=== PATIENT | male | born 1980 | race Two or more races ===

== ENCOUNTER 2024-08-12 22:23 | Emergency (ER) | payer OTHER, SELFPAY ==
[2024-08-12 22:24] VITALS: BMI 23.0
[2024-08-12 22:33] VITALS: BP 144/75; PULSE 75; RESP 18; TEMP 36.4; O2SAT 97
--- NOTE | 2024-08-12 22:38 | XR_ITS ---
Examination: CT lumbar spine, without contrast. 2-D sagittal reconstructions. 2-D coronal reconstructions. 3-D reconstructions. Date and time of exam:August 13, 2024 0047 hrs. Indications: Patient fell today with injury to lower back, lower back pain CTDI: vol (mGy):16.9 DLP: (mGycm):492 Technique: Multiple 1.25 mm axial sections of the lumbar spine without intravenous contrast have been obtained. 2-D sagittal and coronal reconstructions have been obtained. 3-D reconstructions have been obtained. Low dose protocols were performed. One or more of the following dose reduction techniques were used; automated exposure control, adjustment of the mA and/or KV according to patient size, use of iterative reconstruction technique. Findings: Satisfactory alignment lumbar vertebral bodies on the lateral view No lumbar vertebral body compression fracture Advanced disc narrowing L5-S1 Lumbar pedicles, laminae, transverse and posterior spinous processes intact No focal lumbar disc protrusion Impression: No lumbar fracture
[2024-08-12] MEDS: NAPROXEN 250 MG TABLET 500 MG PO (23:04)
--- NOTE | 2024-08-13 02:43 | PRELIM_ITS ---
CT scan of the lumbar spine without intravenous contrast (axial sections with sagittal and coronal reformats) August 13, 2024 0047 hours Clinical History: Trays fell on his back Comparison: None Findings: There is no evidence of acute fracture or traumatic subluxation. There is disc protrusion at L4-L5 causing moderate bilateral neural foraminal narrowing. There is decrease in L5-S1 intervertebral disc space. The vertebral body height and other intervertebral disc spaces are normal. The soft tissues are unremarkable. Impression: No evidence of acute fracture or traumatic subluxation. Other findings as described above. Suggest clinical correlation and follow up accordingly. Report Electronically Signed By: Horace Mann 08/13/2024 2:43:19 AM [EST]
--- NOTE | 2024-08-13 03:17 | PD.EDBACK ---
ED Back Injury Pain RME/HPI General Chief Complaint: Back Pain/Injury Stated Complaint: BACK PAIN AFTER TRAYS FELL ON TOP OF HIM Time Seen by Provider: 08/12/24 22:38 Arrival date/time: 08/12/24 22:23 44M with no significant PMH presents to ED with low back pain after some pallets fell on his back at work today. Patient denies paresthesia and bowel/bladder incontinence. Limitations: no limitations Related Data Previous Rx's ?Medication ?Instructions ?Recorded doxycycline hyclate 100 mg capsule 100 mg PO BID #14 caps 04/29/22 Allergies Allergy/AdvReac Type Severity Reaction Status Date / Time No Known Allergies Allergy Verified 08/12/24 22:24 Review of Systems Review of Systems Systems Reviewed: All systems reviewed, normal except as documented Constitutional Constitutional: Reports system reviewed and no additional complaints, except as documented, Denies fever(s) and Denies headache(s) ENT Ears, Nose, Mouth, and Throat: Denies disequilibrium and Denies headache(s) Cardiovascular Cardiovascular: Reports system reviewed and no additional complaints, except as documented, Denies chest pain and Denies dyspnea Respiratory Respiratory: Reports system reviewed and no additional complaints, except as documented, Denies cough and Denies dyspnea Gastrointestinal Gastrointestinal: Reports system reviewed and no additional complaints, except as documented, Denies abdominal pain, Denies nausea and Denies vomiting Musculoskeletal Musculoskeletal: Reports as per HPI and Reports back pain Neurologic Neurologic: Reports system reviewed and no additional complaints, except as documented, Denies confusion, Denies disequilibrium and Denies headache(s) Psychiatric Psychiatric: Denies confusion Past Medical History Past Medical History CARDIAC: Negative Congestive Heart Failure RESPIRATORY: Negative Chronic Obstructive Pulmonary Disease (COPD) GENITOURINARY: Negative Renal Disease ENDOCRINE: Negative Diabetes Mellitus Type 1 or Diabetes Mellitus Type 2 Surgical History SURGICAL: Positive Eye Surgery Social History SMOKING STATUS: Never smoker ED Exam General Limitations: Present no limitations General appearance: Present alert and in no apparent distress Head Head exam: Present atraumatic Eye Eye exam: Present normal appearance, PERRL and EOMI ENT ENT exam: Present normal exam, normal oropharynx and mucous membranes moist Neck Neck exam: Present normal inspection, full ROM and trachea midline Chest Chest inspection: Present normal inspection and symmetric chest wall rise Respiratory Respiratory exam: Present normal lung sounds bilaterally Cardiovascular Cardiovascular exam: Present regular rate, normal rhythm and normal heart sounds Abdominal Exam Abdominal exam: Present soft and normal bowel sounds Extremities Exam Extremities exam: Present normal inspection and full ROM Back Exam Back exam: Present full ROM and tenderness Neurological Exam Neurological exam: Present alert, oriented X3 and CN II-XII intact Psychiatric Psychiatric exam: Present normal affect and normal mood Skin Skin exam: Present warm, dry, intact and normal color Course Quality Measures none Orders Category Date Time Status CT lumbar spine wo con Stat Exams 08/12/24 22:38 Taken Naproxen [Naprosyn] Med 08/12/24 22:38 Discontinued 500 mg PO X1 ONE Vital Signs Vital signs: Vital Signs Temperature 97.5 F 08/12/24 22:33 Pulse Rate 75 08/12/24 22:33 Respiratory Rate 18 08/12/24 22:33 Blood Pressure 144/75 H 08/12/24 22:33 Pulse Oximetry (%) 97 08/12/24 22:33 Oxygen Delivery Method Room Air 08/12/24 22:33 O2 at 97% on RA and WNLs Back Pain / Injury MDM Narrative MDM Narrative:: 44M with no significant PMH presents to ED with low back pain after some pallets fell on his back at work today. Patient denies paresthesia and bowel/bladder incontinence. Physical exam reveals mild lumbar tenderness. Pain is more with ROM, which is intact. Gait normal. Patient is afebrile, calm, and alert. CT no fx but L5-S1 disc bulg. Unknown if pre-existing or from accident. Meds improved symptoms. [employer] given. Patient data External records reviewed:: [facility] previous records Clinical information provided by:: patient Social determinants that could affect healthcare access:: none Patient has the following chronic illnesses:: none How is presenting disease/condition affected by chronic disease/condition?: no chronic disease Evaluation data The following diagnostics were reviewed and interpreted by me:: radiology exam(s) Lab and/or radiology exams considered but not ordered:: ordered Interpretation Summary: above Medications / Prescriptions Medications or Prescriptions considered but not ordered:: ordered Medication administrations:: Medication Administration History Discontinued Medications Naproxen (Naproxen 250 Mg Tablet) 500 mg PO X1 ONE Stop: 08/12/24 22:39 Last Admin: 08/12/24 23:04 Dose: 500 mg Documented By: KF above Consultations Consultation(s) initiated? (list below): No Diagnosis Differential diagnosis back pain/injury: lumbar radiculopathy, sciatica, strain of lumbar region, renal colic, pyelonephritis, thoracic back pain, AAA, discitis and other (lumbar contusion, protruded lumbar disc) Most likely diagnosis given after review of the tests above:: lumbar contusion, protruded lumbar disc Admission Indicated Admission indicated?: not indicated Admission Request Was there a request for admission?: No Disposition Plan Disposition Plan: Discharge Discharge Attestation Discharge Attestation: The patient and all family members were given an opportunity to ask questions and understood the discharge instructions. Discharge instructions specifically effects, indications for sooner follow up or return to the emergency department, and the expected course of current diagnosis. Patient condition: Stable Discharge Plan Plan Patient Disposition: HOME (Self Care) Prescriptions/Referrals Prescriptions/Med Rec: No Action doxycycline hyclate 100 mg capsule 100 mg PO BID Qty: 14 0RF Referrals: No Primary/Family,Physician [Primary Care Provider] - In 1 week Problem List Clinical Impression: Lumbar contusion, Protruded lumbar disc Patient/Caregiver Discharge Instructions Education Materials: ED Back Contusion, ED Herniated Intervertebral Disk Additional Instructions: Please follow-up with PCP within 24-48 hours and return immediately if symptoms worsen. If problem persists, recommend outpatient PT and/or MRI follow-up. In the meantime, rest, use ice/heat, and/or compression. Print Language: Belgian Stand Alone Forms: Patient Portal Info Letter LIZY/FREDRICK Supervising Physician LIZY/FREDRICK Supervising Physician: Dr. Ovalle
== END 2024-08-13 02:57 | disposition home or self-care (01) ==
PROVIDERS: Emergency Provider Emergency Medicine
DX: S30.0XXA Contusion of lower back and pelvis, initial encounter (principal); M51.370 Other intervertebral disc degeneration, lumbosacral region with discogenic back pain only; W20.8XXA Other cause of strike by thrown, projected or falling object, initial encounter; Y99.0 Civilian activity done for income or pay
CPT/HCPCS: 72131; 99284; A9270